=== PATIENT | male | born 1950 | race American Indian/Alaskan Native ===

== ENCOUNTER 2019-05-21 15:20 | Emergency (ER) | payer MEDICARE, OTHER ==
--- NOTE | 2019-05-21 16:06 | Event Note ---
ED Screening Note Date of service: 05/21/19 Time: 16:02 ED Screening Note: This is a 68 y.o. male that presents with nausea and abdominal pain x 3 days. Taking OTC medication with no improvement of symptoms. PMH of DM2 & HTN, chronic pancreatitis This initial assessment/diagnostic orders/clinical plan/treatment(s) is/are subject to change based on patients health status, clinical progression and re- assessment by fellow clinical providers in the ED. Further treatment and workup at subsequent clinical providers discretion. Patient/guardian urged not to elope from the ED as their condition may be serious if not clinically assessed and managed. Initial orders include: Labs and CT of abdomen and pelvis
[2019-05-21 17:15] LABS: Basophils # (Auto) 0.1 K/mm3 (0.0-0.1); Basophils % (Auto) 0.6 % (0.0-1.8); Eosinophils # (Auto) 0.1 K/mm3 (0.0-0.4); Eosinophils % (Auto) 1.5 % (0.0-4.3); Hematocrit 39.7 % (35.5-45.6); Hemoglobin 13.5 gm/dl (11.8-15.2); Lymphocytes # (Auto) 2.2 K/mm3 (1.2-5.4); Lymphocytes % (Auto) 27.9 % (13.4-35.0); Mean Corpuscular HGB Conc 34 % (32-34); Mean Corpuscular Volume 93 fl (84-94); Monocytes # (Auto) 0.6 K/mm3 (0.0-0.8); Monocytes % (Auto) 7.4 % (0.0-7.3); Platelet Count 292 K/mm3 (140-440); Red Blood Count 4.27 M/mm3 (3.65-5.03); Red Cell Distribution Width 12.9 % (13.2-15.2)
[2019-05-21 17:32] LABS: Albumin 4.2 g/dL (3.9-5); Calcium 10.4 mg/dL (8.4-10.2)
[2019-05-21 17:35] LABS: Bilirubin,Urine NEG (Negative); Blood,Urine NEG (Negative); Color,Urine Amber (Yellow); Mucus,Urine FEW /HPF; Protein,Urine <15 mg/dL mg/dL (Negative); Urobilinogen,Urine < 2.0 mg/dL (<2.0); WBC,Urine < 1.0 /HPF (0.0-6.0)
[2019-05-21] MEDS ORDERED: PEPCID IV ONE (19:33)
[2019-05-21] MEDS ORDERED: NACL 0.9% 1000 ML 1,000 ML IV ONE (19:33)
[2019-05-21] MEDS ORDERED: MORPHINE IV ONE (19:33)
[2019-05-21] MEDS ORDERED: ZOFRAN IV ONE (19:33)
--- NOTE | 2019-05-21 20:12 | XRay Report ---
CHEST 2 VIEWS INDICATION: dyspnea. COMPARISON: None FINDINGS: Support devices: None. Heart: Within normal limits. Lungs/pleura: No acute air space or interstitial disease. No pneumothorax. Additional findings: None. IMPRESSION: 1. No acute findings. Signer Name: Justin Pires MD Signed: 05/21/2019 8:07 PM Workstation Name: [id number]
--- NOTE | 2019-05-21 20:43 | Cat Scan Report ---
CT ABDOMEN AND PELVIS WITH CONTRAST HISTORY: diffuse abdominal pain. Nausea and left lower abdominal pain today COMPARISON: CT abdomen/pelvis from 08/07/2014 TECHNIQUE: CT images of the abdomen and pelvis were obtained following administration of intravenous contrast. All CT scans at this location are performed using CT dose reduction for ALARA by means of automated exposure control. CONTRAST: 100 ml of intravenous contrast administered. FINDINGS: Lungs/bones: The lung bases are clear. There is DJD in the spine and pelvis with no acute osseous ab normality. Abdomen/pelvis: The liver, gallbladder, spleen, pancreas, and adrenals appear unremarkable. There ar e simple bilateral renal cysts. There is a moderately-sized hiatal hernia with slightly rotated appearance stomach and mild central s wirling. There are a few mildly prominent central bowel loops but no overt bowel obstruction. The urinary bladder is unremarkable. The prostate is enlarged and indents the bladder base. No pelvic free fluid. There is colonic diverticulosis with circumferential wall thickening and an apparent tra nsitional area in the sigmoid colon region as seen on axial images 135-140 and sagittal image 74. The re is also mild gaseous distention of portions of the transverse colon which is nonspecific. The term inal ileum and appendix appear unremarkable. IMPRESSION: 1. No acute abnormality identified. 2. Findings in the sigmoid colon as above where there is an apparent transition which is circumferent ial. Recommend follow-up colonoscopy once clinically feasible if this has not been recently performed to exclude any underlying neoplastic process. Signer Name: Justin Pires MD Signed: 05/21/2019 8:39 PM Workstation Name: [id number]
[2019-05-21] MEDS ORDERED: FLAGYL PO ONE (21:25)
[2019-05-21] MEDS ORDERED: LEVAQUIN PO ONE (21:27)
[2019-05-21] MEDS ORDERED: BENADRYL IV ONE (21:28)
[2019-05-21] MEDS ORDERED: REGLAN IV ONE (21:28)
--- NOTE | 2019-05-21 23:32 | Emergency Department Report ---
ED N/V/D HPI - General Chief complaint: Abdominal Pain Stated complaint: STOMACH PAIN/WEAKNESS Time Seen by Provider: 05/21/19 16:02 Source: patient Mode of arrival: Ambulatory Limitations: No Limitations - History of Present Illness MD complaint: nausea, abdominal pain -: Sudden Description of Vomiting: other (No vomiting) Description of Diarrhea: other (No diarrhea) Associated Abdominal Pain: Yes Location: diffuse Radiation: none Severity: moderate Pain Scale: 4 Quality: cramping, dull Consistency: intermittent Improves with: none Worsens with: none Associated Symptoms: denies other symptoms, malaise, nausea/vomiting. denies: myalgias, chest pain, cough, diaphoresis, fever/chills, headaches, loss of appetite, rash, shortness of breath, syncope, weakness - Related Data Home Medications Medication Instructions Recorded Confirmed Last Taken Gabapentin [Neurontin] 400 mg PO Q8H PRN 07/31/14 08/23/14 07/30/14 Glimepiride [Amaryl] 8 mg PO BID 07/31/14 08/23/14 08/23/14 Lisinopril [Zestril] 40 mg PO QDAY 07/31/14 08/24/14 08/24/14 Simvastatin 20 mg PO QDAY 07/31/14 08/23/14 08/22/14 hydroCHLOROthiazide [Hctz] 25 mg PO QDAY 07/31/14 08/24/14 08/24/14 traMADol [Ultram] 50 mg PO Q6HR PRN 07/31/14 08/23/14 07/29/14 Pioglitazone [Actos] 1 tab PO DAILY 08/23/14 08/23/14 08/23/14 Previous Rx's Medication Instructions Recorded Last Taken Type HYDROcodone/APAP 5-325 [[place] 2 each PO Q6HR PRN #20 tablet 07/31/14 Unknown Rx 5/325] Ciprofloxacin HCl [Ciprofloxacin 500 mg PO Q12H #20 tablet 05/21/19 Unknown Rx TAB] Dicyclomine [Bentyl] 20 mg PO Q6H PRN #30 tablet 05/21/19 Unknown Rx Ondansetron [Zofran ODT TAB] 8 mg PO Q8HR PRN #20 tab.rapdis 05/21/19 Unknown Rx Ranitidine HCl [Zantac] 150 mg PO Q12H #30 tablet 05/21/19 Unknown Rx metroNIDAZOLE [Flagyl] 500 mg PO Q8H #30 tab 05/21/19 Unknown Rx Allergies Allergy/AdvReac Type Severity Reaction Status Date / Time No Known Allergies Allergy Verified 05/21/19 15:22 ED Review of Systems ROS: Stated complaint: STOMACH PAIN/WEAKNESS Other details as noted in HPI Constitutional: malaise, weakness. denies: chills, fever Eyes: denies: eye pain, eye discharge, vision change ENT: denies: ear pain, throat pain Respiratory: denies: cough, shortness of breath, wheezing Cardiovascular: denies: chest pain, palpitations Endocrine: no symptoms reported Gastrointestinal: abdominal pain, nausea. denies: diarrhea, constipation, hematemesis, melena, hematochezia Genitourinary: denies: urgency, dysuria Musculoskeletal: denies: back pain, joint swelling, arthralgia Skin: denies: rash, lesions Neurological: denies: headache, weakness, paresthesias Psychiatric: denies: anxiety, depression Hematological/Lymphatic: denies: easy bleeding, easy bruising ED Past Medical Hx - Past Medical History Hx Hypertension: Yes Hx Diabetes: Yes Hx Pulmonary Embolism: No Hx Liver Disease: (chronic pancreatitis) Hx Sickle Cell Disease: No Hx Asthma: No Hx COPD: No Hx Tuberculosis: No Hx HIV: No Additional medical history: Hyperlipdemia - Surgical History Additional Surgical History: Right knee surgery and left foot - Social History Smoking Status: Current Some Day Smoker - Medications Home Medications: Home Medications Medication Instructions Recorded Confirmed Last Taken Type Gabapentin [Neurontin] 400 mg PO Q8H PRN 07/31/14 08/23/14 07/30/14 History Glimepiride [Amaryl] 8 mg PO BID 07/31/14 08/23/14 08/23/14 History HYDROcodone/APAP 5-325 [[place] 2 each PO Q6HR PRN #20 tablet 07/31/14 08/23/14 Unknown Rx 5/325] Lisinopril [Zestril] 40 mg PO QDAY 07/31/14 08/24/14 08/24/14 History Simvastatin 20 mg PO QDAY 07/31/14 08/23/14 08/22/14 History hydroCHLOROthiazide [Hctz] 25 mg PO QDAY 09/08/24/14 08/24/14 History traMADol [Ultram] 50 mg PO Q6HR PRN 07/31/14 08/23/14 07/29/14 History Pioglitazone [Actos] 1 tab PO DAILY 08/23/14 08/23/14 08/23/14 History Ciprofloxacin HCl [Ciprofloxacin 500 mg PO Q12H #20 tablet 05/21/19 Unknown Rx TAB] Dicyclomine [Bentyl] 20 mg PO Q6H PRN #30 tablet 05/21/19 Unknown Rx Ondansetron [Zofran ODT TAB] 8 mg PO Q8HR PRN #20 tab.rapdis 05/21/19 Unknown Rx Ranitidine HCl [Zantac] 150 mg PO Q12H #30 tablet 05/21/19 Unknown Rx metroNIDAZOLE [Flagyl] 500 mg PO Q8H #30 tab 05/21/19 Unknown Rx ED Physical Exam - General Limitations: No Limitations General appearance: alert, in no apparent distress - Head Head exam: Present: atraumatic, normocephalic, normal inspection - Eye Eye exam: Present: normal appearance, PERRL, EOMI. Absent: scleral icterus, conjunctival injection, nystagmus Pupils: Present: normal accommodation - ENT ENT exam: Present: normal exam, normal orophraynx, mucous membranes moist, TM's normal bilaterally, normal external ear exam - Neck Neck exam: Present: normal inspection, full ROM - Respiratory Respiratory exam: Present: normal lung sounds bilaterally. Absent: respiratory distress, wheezes, rales, rhonchi, stridor, chest wall tenderness, decreased breath sounds, prolonged expiratory - Cardiovascular Cardiovascular Exam: Present: regular rate, normal rhythm, normal heart sounds. Absent: systolic murmur, diastolic murmur, rubs, gallop - GI/Abdominal GI/Abdominal exam: Present: soft, tenderness (moderately diffuse tenderness, no guarding or rebound), normal bowel sounds. Absent: guarding, rebound, hyperactive bowel sounds, hypoactive bowel sounds, organomegaly, mass, bruit, pulsatile mass - Rectal Rectal exam: Present: deferred - Extremities Exam Extremities exam: Present: normal inspection, full ROM, normal capillary refill - Back Exam Back exam: Present: normal inspection, full ROM. Absent: CVA tenderness (L), muscle spasm, paraspinal tenderness - Neurological Exam Neurological exam: Present: alert, oriented X3, CN II-XII intact, normal gait, reflexes normal. Absent: motor sensory deficit - Psychiatric Psychiatric exam: Present: normal affect, normal mood - Skin Skin exam: Present: warm, dry, intact, normal color. Absent: rash ED Course Vital Signs 05/21/19 05/21/19 15:24 20:36 Temperature 97.4 F L Pulse Rate 90 70 Respiratory 18 20 Rate Blood Pressure 122/84 Blood Pressure 117/86 [Right] O2 Sat by Pulse 99 99 Oximetry - Reevaluation(s) Reevaluation #1: 05/21/19 23:39 Patient is alert and oriented 3 and is not in distress with normal vital signs. Lab test results were reviewed and are unremarkable except for dehydration. Patient was treated for nausea and vomiting, pain and also given normal saline 1 L IV bolus. Patient was also treated with antiemetics. Abdomen pelvis CT scan with contrast shows a moderate fever sized had a hernia with a slightly rotated appearance stomach with mild central swelling. There are a few mildly prominen t central bowel loops but no overt bowel obstruction. There is also colonic diverticulosis with circumferential wall thickening and an apparent itransitional area in the sigmoid colon region. There is also mild gaseous distention of the portions of the transverse colon which is nonspecific. The t erminal ileum and appendix appeared unremarkable. Colonoscopy was recommended by the radiologist to exclude any underlying neoplastic process. Patient was treated in the ED empirically for sigmoid colitis with Flagyl and Levaquin in the ED. On reevaluation, patient's symptoms have significantly improved, including pain and nausea. Patient was discharged home on anti-emetics, ciprofloxacin, Ultram for pain and Flagyl, and patient advised to follow-up with his lead business systems analyst Dr. Esqueda in the next 5-7 days for reevaluation for possible repeat colonoscopy although the patient had stated earlier that he had colonoscopy over 1 year ago with normal findings. ED Medical Decision Making - Lab Data Result diagrams: 05/21/19 16:56 05/21/19 16:56 - Radiology Data Radiology results: report reviewed, image reviewed Abdomen pelvis CT scan with contrast shows a moderate fever sized had a hernia with a slightly rotated appearance stomach with mild central swelling. There are a few mildly prominent central bowel loops but no overt bowel obstruction. There is also colonic diverticulosis with circumferential wall thickening and an apparent transitional area in the sigmoid colon region. There is also mild gaseous distention of the portions of the transverse colon which is nonspecific. The terminal ileum and appendix appeared unremarkable - Medical Decision Making Patient is alert and oriented 3 and is not in distress with normal vital signs. Lab test results were reviewed and are unremarkable except for dehydration. Patient was treated for nausea and vomiting, pain and also given normal saline 1 L IV bolus. Patient was also treated with antiemetics. Abdomen pelvis CT scan with contrast shows a moderate fever sized had a hernia with a slightly rotated appearance stomach with mild central swelling. There are a few mildly prominent central bowel loops but no overt bowel obstruction. There is also colonic diverticulosis with circumferential wall thickening and an apparent transitional area in the sigmoid colon region. There is also mild gaseous distention of the portions of the transverse colon which is nonspecific. The terminal ileum and appendix appeared unremarkable. Colonoscopy was recommended by the radiologist to exclude any underlying neoplastic process. Patient was treated in the ED empirically for sigmoid colitis with Flagyl and Levaquin in the ED. On reevaluation, patient's symptoms have significantly improved, including pain and nausea. Patient was discharged home on anti-emetics, ciprofloxacin, Ultram for pain and Flagyl, and patient advised to follow-up with his lead business systems analyst Dr. Esqueda in the next 5-7 days for reevaluation for possible repeat colonoscopy although the patient had stated earlier that he had colonoscopy over 1 year ago with normal findings. - Differential Diagnosis Abdominal pain, SBO, Acute Appendicitis, Diverticulitis, colitis, GERD Critical care attestation.: If time is entered above; I have spent that time in minutes in the direct care of this critically ill patient, excluding procedure time. ED Disposition Clinical Impression: Nausea and vomiting in adult patient, Acute colitis Abdominal pain Qualifiers: Abdominal location: generalized Qualified Code(s): R10.84 - Generalized abdominal pain GERD (gastroesophageal reflux disease) Qualifiers: Esophagitis presence: without esophagitis Qualified Code(s): K21.9 - Gastro-es ophageal reflux disease without esophagitis Disposition: - TO HOME OR SELFCARE Is pt being admited?: No Does the pt Need Aspirin: No Condition: Stable Instructions: Abdominal Pain (ED), Acute Nausea and Vomiting (ED), Gastroesophageal Reflux Disease (ED), Diverticulitis (ED) Additional Instructions: Take medications with food, drink plenty of fluids and follow-up with your lead business systems analyst Dr. Esqueda in 5-7 days for reevaluation. Return to the ED immediately if symptoms get worse. Prescriptions: Dicyclomine [Bentyl] 20 mg PO Q6H PRN #30 tablet PRN Reason: Pain , Severe (7-10) Ciprofloxacin HCl [Ciprofloxacin TAB] 500 mg PO Q12H #20 tablet metroNIDAZOLE [Flagyl] 500 mg PO Q8H #30 tab Ranitidine HCl [Zantac] 150 mg PO Q12H #30 tablet Ondansetron [Zofran ODT TAB] 8 mg PO Q8HR PRN #20 tab.rapdis PRN Reason: Nausea Referrals: ARIANA TUCKER MD [Primary Care Provider] - 3-5 Days Time of Disposition: 23:51 Print Language: BELARUSIAN
[2019-05-22 00:09] VITALS: BP 109/76
== END 2019-05-22 00:10 | disposition home or self-care (01) ==
LOC: ED 15:20
DX: K21.9 Gastro-esophageal reflux disease without esophagitis (principal); K52.9 Noninfective gastroenteritis and colitis, unspecified; F17.200 Nicotine dependence, unspecified, uncomplicated; I10 Essential (primary) hypertension; E11.9 Type 2 diabetes mellitus without complications; E78.5 Hyperlipidemia, unspecified; Z79.899 Other long term (current) drug therapy; Z98.890 Other specified postprocedural states; Z87.19 Personal history of other diseases of the digestive system
CPT/HCPCS: 36415; 71046; 74177; 80053; 81001; 83690; 83880; 84484; 85025; 96361; 96374; 96375; 99284; J1200; J2270; J2405; J2765; J7030; Q9967

== ENCOUNTER 2020-06-03 15:16 | Emergency (ER) | payer OTHER ==
[2020-06-03 16:06] VITALS: BP 137/83
[2020-06-03 16:27] LABS: Bilirubin,Urine NEG (Negative); Blood,Urine NEG (Negative); Color,Urine Amber (Yellow); Protein,Urine <15 mg/dL mg/dL (Negative); RBC,Urine < 1.0 /HPF (0.0-6.0); Urobilinogen,Urine < 2.0 mg/dL (<2.0); WBC,Urine < 1.0 /HPF (0.0-6.0)
[2020-06-03 16:46] LABS: Basophils % (Auto) 0.4 % (0.0-1.8); Eosinophils # (Auto) 0.1 K/mm3 (0.0-0.4); Eosinophils % (Auto) 0.9 % (0.0-4.3); Hematocrit 38.2 % (35.5-45.6); Hemoglobin 12.8 gm/dl (11.8-15.2); Lymphocytes # (Auto) 1.6 K/mm3 (1.2-5.4); Lymphocytes % (Auto) 22.3 % (13.4-35.0); Mean Corpuscular HGB Conc 34 % (32-34); Mean Corpuscular Volume 95 fl (84-94); Monocytes # (Auto) 0.4 K/mm3 (0.0-0.8); Monocytes % (Auto) 6.2 % (0.0-7.3); Platelet Count 291 K/mm3 (140-440); Red Blood Count 4.02 M/mm3 (3.65-5.03); Red Cell Distribution Width 13.6 % (13.2-15.2)
[2020-06-03 17:08] LABS: Alanine Aminotransferase 13 units/L (7-56); Albumin 4.2 g/dL (3.9-5); BUN/Creatinine Ratio 9; Blood Urea Nitrogen 12 mg/dL (9-20); Hemolysis Index 9
--- NOTE | 2020-06-03 19:50 | Emergency Department Report ---
ED Abdominal Pain HPI - General Chief Complaint: Abdominal Pain Stated Complaint: STOMACH PAINS Time Seen by Provider: 06/03/20 19:40 Source: patient Mode of arrival: Ambulatory Limitations: No Limitations - History of Present Illness Initial Comments: 69-year-old -French male presents to the emergency room complaining of abdominal discomfort and weakness for the last 3 days. Patient admits to nausea and had vomited 2 days ago but is able to drink fluids. Patient denies any fever no chills has not had a bowel movement since Thursday. Patient is a diabetic blood sugars have been running high. He reports that they usually run about 140 to 150 now running 1 80-2 20. Patient is on oral hypoglycemic medications. Patient states that he had about of this almost a year ago. Patient states that he took Zofran and Bentyl last night and reports it did not help. Patient was able to drive himself to the emergency room. Patient does have a primary care provider Dr. Calzada in [place]. MD Complaint: abdominal pain Onset/Timin -: days(s) Location: LLQ, suprapubic Radiation: none Severity scale (0 -10): 10 Quality: other (Discomfort) Consistency: constant Improves With: nothing Worsens With: nothing Associated Symptoms: nausea, vomiting (2 days ago), constipation (Last bowel movement 3 days ago). denies: diarrhea, fever, dysuria, hematemesis, hematoche mike - Related Data Home Medications Medication Instructions Recorded Confirmed Last Taken Gabapentin [Neurontin] 400 mg PO Q8H PRN 07/31/14 08/23/14 07/30/14 Glimepiride [Amaryl] 8 mg PO BID 07/31/14 08/23/14 08/23/14 Simvastatin 20 mg PO QDAY 07/31/14 08/23/14 08/22/14 hydroCHLOROthiazide [Hctz] 25 mg PO QDAY 07/31/14 08/24/14 08/24/14 lisinopriL [Zestril] 40 mg PO QDAY 07/31/14 08/24/14 08/24/14 traMADoL [Ultram] 50 mg PO Q6HR PRN 07/31/14 08/23/14 07/29/14 Pioglitazone [Actos] 1 tab PO DAILY 08/23/14 08/23/14 08/23/14 Previous Rx's Medication Instructions Recorded Last Taken Type HYDROcodone/APAP 5-325 [[place] 2 each PO Q6HR PRN #20 tablet 07/31/14 Unknown Rx 5/325] Ciprofloxacin HCl [Ciprofloxacin 500 mg PO Q12H #20 tablet 05/21/19 Unknown Rx TAB] Dicyclomine [Bentyl] 20 mg PO Q6H PRN #30 tablet 05/21/19 Unknown Rx Ondansetron [Zofran ODT TAB] 8 mg PO Q8HR PRN #20 tab.rapdis 05/21/19 Unknown Rx metroNIDAZOLE [Flagyl] 500 mg PO Q8H #30 tab 05/21/19 Unknown Rx raNITIdine HCl [Zantac] 150 mg PO Q12H #30 tablet 05/21/19 Unknown Rx Polyethylene Glycol 3350 [Miralax] 17 gm PO QDAY PRN #119 gram 06/03/20 Unknown Rx Allergies Allergy/AdvReac Type Severity Reaction Status Date / Time No Known Allergies Allergy Verified 05/21/19 15:22 ED Review of Systems ROS: Stated complaint: STOMACH PAINS Other details as noted in HPI Comment: All other systems reviewed and negative ED Past Medical Hx - Past Medical History Previous Medical History?: Yes Hx Hypertension: Yes Hx Diabetes: Yes Hx Pulmonary Embolism: No Hx Liver Disease: (chronic pancreatitis) Hx Sickle Cell Disease: No Hx Asthma: No Hx COPD: No Hx Tuberculosis: No Hx HIV: No Additional medical history: Hyperlipdemia - Surgical History Past Surgical History?: Yes Additional Surgical History: Right knee surgery and left foot - Social History Smoking Status: Current Every Day Smoker - Medications Home Medications: Home Medications Medication Instructions Recorded Confirmed Last Taken Type Gabapentin [Neurontin] 400 mg PO Q8H PRN 07/31/14 08/23/14 07/30/14 History Glimepiride [Amaryl] 8 mg PO BID 07/31/14 08/23/14 08/23/14 History HYDROcodone/APAP 5-325 [[place] 2 each PO Q6HR PRN #20 tablet 07/31/14 08/23/14 Unknown Rx 5/325] Simvastatin 20 mg PO QDAY 07/31/14 08/23/14 08/22/14 History hydroCHLOROthiazide [Hctz] 25 mg PO QDAY 07/31/14 08/24/14 08/24/14 History lisinopriL [Zestril] 40 mg PO QDAY 07/31/14 08/24/14 08/24/14 History traMADoL [Ultram] 50 mg PO Q6HR PRN 07/31/14 08/23/14 07/29/14 History Pioglitazone [Actos] 1 tab PO DAILY 08/23/14 08/23/14 08/23/14 History Ciprofloxacin HCl [Ciprofloxacin 500 mg PO Q12H #20 tablet 05/21/19 Unknown Rx TAB] Dicyclomine [Bentyl] 20 mg PO Q6H PRN #30 tablet 05/21/19 Unknown Rx Ondansetron [Zofran ODT TAB] 8 mg PO Q8HR PRN #20 tab.rapdis 05/21/19 Unknown Rx metroNIDAZOLE [Flagyl] 500 mg PO Q8H #30 tab 05/21/19 Unknown Rx raNITIdine HCl [Zantac] 150 mg PO Q12H #30 tablet 05/21/19 Unknown Rx Polyethylene Glycol 3350 [Miralax] 17 gm PO QDAY PRN #119 gram 06/03/20 Unknown Rx ED Physical Exam - General Limitations: No Limitations General appearance: alert, in no apparent distress - Head Head exam: Present: atraumatic, normocephalic - Eye Eye exam: Present: normal appearance - ENT ENT exam: Present: mucous membranes moist - Neck Neck exam: Present: normal inspection, full ROM - Respiratory Respiratory exam: Present: normal lung sounds bilaterally. Absent: respiratory distress, wheezes, rales - Cardiovascular Cardiovascular Exam: Present: regular rate, normal rhythm. Absent: systolic murmur, diastolic murmur, rubs, gallop - GI/Abdominal GI/Abdominal exam: Present: soft, tenderness (Left lower quadrant and suprapubic), guarding (Left lower quadrant and suprapubic), normal bowel sounds. Absent: distended - Back Exam Back exam: Present: normal inspection, full ROM - Neurological Exam Neurological exam: Present: alert, oriented X3 - Psychiatric Psychiatric exam: Present: normal affect, normal mood - Skin Skin exam: Present: warm, dry, intact, normal color. Absent: rash ED Course Vital Signs 06/03/20 16:03 Temperature 98.7 F Pulse Rate 81 Respiratory 18 Rate Blood Pressure 137/83 O2 Sat by Pulse 96 Oximetry ED Medical Decision Making - Lab Data Result diagrams: 06/03/20 16:26 06/03/20 16:26 - Radiology Data Radiology results: report reviewed [facility] [address] [id number] Cat Scan Report Signed Patient: ALTON GRAVES MR#: [id number] : 1950 Acct:[id number] Age/Sex: 69 / M ADM Date: 06/03/20 Loc: ED Attending Dr: Ordering Physician: JAMAL THOMAS Date of Service: 06/03/20 Procedure(s): CT abdomen pelvis w con Accession Number(s): [id number] cc: JAMAL THOMAS CT OF THE ABDOMEN AND PELVIS WITH INTRAVENOUS CONTRAST INDICATION / CLINICAL INFORMATION: Abdominal pain and tenderness. TECHNIQUE: The patient received 100 cc Omnipaque [address] scans at this location are performed using CT dose reduction for ALARA by means of automated exposure control. COMPARISON: 05/21/19. FINDINGS: ABDOMEN: There is a small hiatal hernia. The liver, spleen, gallbladder, bile ducts, pancreas and adrenal glands are normal. There are small bilateral simple renal cysts. I see no evidence of bowel obstruction, wall thickening or free air. No adenopathy is identified. There are atherosclerotic calcifications involving the aorta without aneurysm. The lung bases are clear. PELVIS: The prostate gland is moderately enlarged. The distal ureters and urinary bladder are normal. A normal appendix is present. There are scattered left colonic diverticula without acute inflammation. No abnormal mass or fluid collection is seen. I do not identify a hernia. There are mild degenerative changes at the lumbosacral junction. IMPRESSION: No acute abnormality is identified. Signer Name: Arnav Lora MD Signed: 06/03/2020 9:42 PM Workstation Name: [id number] Transcribed By: RT Dictated By: Arnav Lora MD Electronically Authenticated By: Arnav Lora MD Signed Date/Time: 06/03/202141 DD/ 36 TD/TT: - Medical Decision Making 69-year-old -French male presents to the emergency room complaining of abdominal discomfort and weakness for the last 3 days. Patient admits to nausea and had vomited 2 days ago but is able to drink fluids. Patient denies any fever no chills has not had a bowel movement since Thursday. Patient is a diabetic blood sugars have been running high. He reports that they usually run about 140 to 150 now running 1 80-2 20. Patient is on oral hypoglycemic medications. Patient states that he had about of this almost a year ago. Patient states that he took Zofran and Bentyl last night and reports it did not help. Patient was able to drive himself to the emergency room. Patient does have a primary care provider Dr. Calzada in [place]. CBC CMP urinalysis CT abdomen with contrast. CT negative for any acute abnormalities. CBC CMP and urinalysis are stable. Wi ll encourage patient to take MiraLAX to help move his bowels. To follow-up with his primary care provider. Critical care attestation.: If time is entered above; I have spent that time in minutes in the direct care of this critically ill patient, excluding procedure time. ED Disposition Clinical Impression: Nonspecific abdominal pain, Constipation Disposition: TO HOME OR SELFCARE Is pt being admited?: No Does the pt Need Aspirin: No Condition: Stable Instructions: Acute Abdominal Pain (ED), Constipation (ED) Additional Instructions: CAT scan of your stomach is negative for any acute abnormalities. Lab work are stable. I would like for you to increase your water intake use MiraLAX to help move your bowels and to follow-up with your primary care provider this week. Prescriptions: Polyethylene Glycol 3350 [Miralax] 17 gm PO QDAY PRN #119 gram PRN Reason: Constipation Referrals: ANATOLIY PORRAS MD [Primary Care Provider] - 3-5 Days Your, primary care provider [Other] - 3-5 Days Forms: Work/School Release Form(ED)
[2020-06-03] MEDS ORDERED: SODIUM CHLORIDE 0.9% 1000 ML 1,000 ML IV ONE (20:58)
--- NOTE | 2020-06-03 21:46 | Cat Scan Report ---
CT OF THE ABDOMEN AND PELVIS WITH INTRAVENOUS CONTRAST INDICATION / CLINICAL INFORMATION: Abdominal pain and tenderness. TECHNIQUE: The patient received 100 cc Omnipaque [address] scans at this location are performed using CT dose reduction for ALARA by means of automated exposure control. COMPARISON: 05/21/19. FINDINGS: ABDOMEN: There is a small hiatal hernia. The liver, spleen, gallbladder, bile ducts, pancreas and adr enal glands are normal. There are small bilateral simple renal cysts. I see no evidence of bowel obst ruction, wall thickening or free air. No adenopathy is identified. There are atherosclerotic calcific ations involving the aorta without aneurysm. The lung bases are clear. PELVIS: The prostate gland is moderately enlarged. The distal ureters and urinary bladder are normal. A normal appendix is present. There are scattered left colonic diverticula without acute inflammatio n. No abnormal mass or fluid collection is seen. I do not identify a hernia. There are mild degenerat donny changes at the lumbosacral junction. IMPRESSION: No acute abnormality is identified. Signer Name: Arnav Lora MD Signed: 06/03/2020 9:42 PM Workstation Name: [id number]
== END 2020-06-03 23:00 | disposition home or self-care (01) ==
LOC: ED 15:16
DX: K59.00 Constipation, unspecified (principal); R10.2 Pelvic and perineal pain; R10.32 Left lower quadrant pain; R11.2 Nausea with vomiting, unspecified; I10 Essential (primary) hypertension; E11.9 Type 2 diabetes mellitus without complications; F17.200 Nicotine dependence, unspecified, uncomplicated; Z98.890 Other specified postprocedural states; Z79.899 Other long term (current) drug therapy
CPT/HCPCS: 36415; 74177; 80053; 81001; 85025; 96360; 99284; J7030; Q9967